=== PATIENT | male | born 1960 | race Caucasian/White ===

== ENCOUNTER 2016-11-22 11:35 | Outpatient (CLI) | payer MEDICARE, OTHER ==
[~2016-11-22] VITALS: Ht 162.6 cm; Wt 88.2 kg
[~2016-11-22 11:35] MED LIST: ASPI-716 PO; BENA1TAB12 PO; DOCU-144 PO; METO-53 PO; PANT40TA3 PO; PLAVIX; ZOC10 PO
[2016-11-22 11:54] VITALS: BP 124/63; PULSE 74; RESP 18; Ht 162.6 cm; Wt 88.2 kg
[2016-11-22] MEDS ORDERED: NEPH PO (12:12)
[2016-11-22] MEDS ORDERED: NATE60TA PO (12:12)
[2016-11-22] MEDS ORDERED: METO-448 PO (12:12)
[2016-11-22] MEDS ORDERED: CALC667C PO (12:12)
[2016-11-22] MEDS ORDERED: SEVE800T7 PO (12:12)
[2016-11-22] MEDS ORDERED: BENA20TA48 PO (12:12)
[2016-11-22] MEDS ORDERED: ATOR20TA38 PO (12:12)
--- NOTE | 2016-11-23 17:37 | CONS ---
[facility] INITIAL OUTPATIENT CONSULTATION NOTE DATE OF CONSULTATION: 11/22/2016 PLACE OF SERVICE: [facility] ASSESSMENT AND PLAN: A very pleasant but unfortunate 56-year-old gentleman with multiple comorbidities including heart disease, status post coronary artery bypass grafting x3 in 2012 as well as diabetes mellitus with multiple complications including near blindness, presenting with left lower quadrant abdominal pain which seems to be completely unrelated to his gallbladder or biliary system. The appearance of the ultrasound of the right upper quadrant and his examination as well as his history do not fit that of biliary disease problem, and I certainly do not see any indication to perform surgical intervention for his gallbladder. He can benefit from further medical workup to possibly include gastroenterology consultation and consideration for colonoscopy if deemed necessary. Overall, I do not see any indication for acute surgical intervention and the patient certainly has significant comorbidities which would put him at high risk for any surgical intervention. Fortunately, that does not seem to be necessary at this time. I reviewed all this in detail with the patient and answered all his questions to the best of my ability. I believe that the patient understood and agreed with the plan. With above assessment I have recommended the followin. Follow with primary care physician. 2. Consideration for gastroenterology consultation and consideration for endoscopic evaluation to include colonoscopy. 3. Attend to medical needs. 4. Symptomatic followup with us as needed. Thank you again for allowing us to participate in the care of this very pleasant gentleman and I am certain his wonderful family. If there are any questions, please feel free to contact me at [phone]. Updated clinical summary Very pleasant 56-year-old gentleman with multiple comorbidities including BMI 33.4 as well as diabetes mellitus complicated by near blindness and a number of other comorbidities who was experiencing left lower quadrant abdominal pain and has cholelithiasis on ultrasound of the right upper quadrant that was done on showing no other evidence of acute cholecystitis. COMORBIDITIES: 1. BMI 33.4. 2. Cholelithiasis with a single stone in the gallbladder as seen on ultrasound of the right upper quadrant 11/15/2016. 3. Simple bilateral renal cysts. 4. 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 5. End-stage renal disease, on dialysis. 6. Onychomycosis due to dermatophyte. PAST SURGICAL HISTORY: Status post 3-vessel bypass 11/27/2012. HISTORY OF PRESENT ILLNESS: The patient is a very pleasant 56-year-old gentleman with above-mentioned comorbidities, who we were kindly asked to consult regarding management of his abdominal pain. The patient reports having left lower quadrant abdominal pain and no pain in the right upper quadrant. He does not report any major issues with diarrhea or blood in the stool or urine. No nausea or vomiting, no fevers or chills, and no major changes in his overall poor, but stable state of health. ALLERGIES: NO KNOWN DRUG ALLERGIES. HOME MEDICATIONS: Multiple and are carefully reviewed and recorded in the electronic record system. SOCIAL HISTORY: No smoking or intravenous drug use. FAMILY HISTORY: No major medical, surgical or oncologic problems reported in the family. REVIEW OF SYSTEMS: Other than the above-mentioned, there are no other pertinent positives or pertinent negatives in a complete 14-point review of systems. PHYSICAL EXAMINATION: GENERAL: The patient appears to be a very pleasant gentleman of descent, appearing stated age, sitting on a chair, holding his walking collapsible cane a walking collapse of cocaine in his hand and in no acute distress. BMI is 33.4. VITAL SIGNS: Temperature 98.9, blood pressure 124/63, pulse 74, respiratory rate 18, pulse oximetry 96% on room air. He has an AV shunt and no peritoneal shunts. HEENT: Normocephalic and atraumatic. Extraocular muscles and hearing are grossly intact bilaterally and symmetrically. Sclerae are nonicteric. Oral cavity is clear; oral mucosa appeared to be pink and moist. Dentition: fair to poor. NECK: Supple. There is no lymphadenopathy or JVD. There is no submental, submandibular or supraclavicular lymphadenopathy. CHEST: Rises symmetrically with each breath; patient is breathing comfortably. There are no audible wheezes, rales or rhonchi on the gross exam. HEART: Pulse is regular and palpable on the right wrist. Capillary refill was normal. Carotid pulses are palpable bilaterally and symmetrically in the neck. EXTREMITIES: Lower extremities contain no pitting edema around the ankles bilaterally and symmetrically. ABDOMEN: Abdomen is soft, nontender and nondistended. There are no peritoneal signs or guarding. No evidence of ascites, organomegaly, caput medusae, engorged subcutaneous veins, or other abnormalities. SKIN: Appears to be pink and feels warm to touch. NEUROLOGIC: Awake, alert, and follows commands appropriately. LABORATORY DATA: Dated 08/30/2016 shows platelet count of 173. Liver function and injury parameters were normal. Albumin 4.6, creatinine 8.83. IMAGING: As above. Note that I personally reviewed all the available and pertinent images and I agree in general with the reported findings. Dictated By: JAYLIN JACQUES/RAMEZ Conf#: [id number] DID#: [id number] CC: Earlene Fuentes;*EndCC* MTDD
== END 2016-11-22 15:16 | disposition home or self-care (01) ==
LOC: HPC 11:35
PROVIDERS: ATTEND Transplant Surgery
DX: R10.32 Left lower quadrant pain (principal); I25.10 Atherosclerotic heart disease of native coronary artery without angina pectoris; E11.9 Type 2 diabetes mellitus without complications; Z87.19 Personal history of other diseases of the digestive system; Z95.1 Presence of aortocoronary bypass graft
CPT/HCPCS: G0463

== ENCOUNTER 2017-09-10 09:42 | Day surgery (SDC) | END 2017-09-10 17:39 | disposition home or self-care (01) ==